=== PATIENT | male | born 1970 | race American Indian/Alaskan Native ===

== ENCOUNTER 2017-09-01 20:36 | Emergency (ER) | payer OTHER ==
[2017-09-01] MEDS ORDERED: ARTIFICIAL TEARS OPHTH OINT OU PRN (20:56)
[2017-09-01] MEDS ORDERED: VASELINE LIP THERAPY TP PRN (20:56)
[2017-09-01 20:57] LABS: Hematocrit 39.1 % (35.5-45.6); Hemoglobin 13.3 gm/dl (11.8-15.2); Mean Corpuscular HGB Conc 34 % (32-34); Mean Corpuscular Hemoglobin 31 pg (28-32); Mean Corpuscular Volume 91 fl (84-94); Platelet Count 133 K/mm3 (140-440); Red Blood Count 4.31 M/mm3 (3.65-5.03); Red Cell Distribution Width 13.4 % (13.2-15.2)
--- NOTE | 2017-09-01 20:57 | Cat Scan Report ---
FINAL REPORT PROCEDURE: CT HEAD/BRAIN WO CON TECHNIQUE: Computerized tomography of the head was performed without contrast material. HISTORY: neuro deficits < 6hrs or sx present upon awakening COMPARISON: No prior studies are available for comparison. FINDINGS: There is acute parenchymal hemorrhage centered in the left basal ganglia, measuring up to 5 centimeters transverse x 2.9 centimeters AP x 4.6 centimeters craniocaudal. There is also intraventricular hemorrhage in the left lateral ventricle and 3rd ventricle. There is 5 millimeters left to right midline shift. There may also be downward shift, with effacement of the basal cisterns. No prior is available to evaluate patient's baseline appearance. No acute fracture is seen. The visualized paranasal sinuses and mastoids are aerated. IMPRESSION: Large area of acute parenchymal hemorrhage centered in the left basal ganglia, with intraventricular extension into the left lateral ventricle and 3rd ventricle. Findings were discussed by telephone with Dr. Schneider at 7:40 p.m. central standard time on 09/01/2017
[2017-09-01] MEDS ORDERED: VERSED IV NR ×2 (21:00→22:00)
[2017-09-01] MEDS ORDERED: DIPRIVAN 10 MG/ML 1,000 MG/100 ML BOTTLE IV SCH (21:00)
[2017-09-01] MEDS ORDERED: DIPRIVAN 10 MG/ML 1,000 MG/100 ML BOTTLE IV ONE (21:02)
[2017-09-01 21:03] LABS: INR 0.91 (0.87-1.13)
[2017-09-01 21:04] LABS: Partial Thromboplastin Time 24.1 Sec. (24.2-36.6)
[2017-09-01] MEDS ORDERED: KEPPRA 1,000 MG in NACL 0.9% 100 ML IV ONE (21:11)
[2017-09-01] MEDS ORDERED: KEPPRA 1,000 MG/NS 0.75% 100ML 1,000 MG/100 ML BAG IV ONE (21:15)
[2017-09-01 21:22] LABS: BUN/Creatinine Ratio 14; Blood Urea Nitrogen 19 mg/dL (9-20); Calcium 9.4 mg/dL (8.4-10.2); Hemolysis Index 5
[2017-09-01] MEDS ORDERED: CARDENE 50 MG in NACL 0.9% 250ML 230 ML IV SCH (21:24)
[2017-09-01] MEDS ORDERED: APRESOLINE IV ONE (21:31)
[2017-09-01 21:35] LABS: Basophils % (Manual) 0 % (0.0-1.8); Total Cells Counted 100
--- NOTE | 2017-09-01 21:35 | XRay Report ---
FINAL REPORT PROCEDURE: XR CHEST 1V AP TECHNIQUE: Chest radiograph anteroposterior view. CPT 38592 HISTORY: ETT placement COMPARISON: No prior studies are available for comparison. FINDINGS: Heart: Prominent cardiac silhouette Mediastinum/Vessels: Prominent central vessels. Lungs/Pleural space: Normal. Endotracheal tube tip projects 2.6 centimeters superior to the antony Bony thorax: No acute osseous abnormality. Life support devices: None. IMPRESSION: Prominent central vessels. Endotracheal tube tip projects 2.6 centimeters superior to the antony.
[2017-09-01 21:36] LABS: Anisocytosis 1+; Large Platelets 1+; Platelet Estimate Consistent w Auto
--- NOTE | 2017-09-01 21:44 | Emergency Department Report ---
ED Neuro Deficit HPI - General Chief Complaint: Neuro Symptoms/Deficit Stated Complaint: POSSIBLE CVA Time Seen by Provider: 09/01/17 20:41 Source: family, EMS Mode of arrival: Stretcher Limitations: Altered Mental Status, Physical Limitation - History of Present Illness Initial Comments: Patient was unable to given hx Hx obtained from EMS, daughter, and mother- in-law Mr. Ng is a 47 yo male with possible hx of HTN. confirmed that he does not seek medical care. Consequently, he does not take any medications. He came home from work according to daughter and [id number]. He went to his bed to rest. He called out to his [id number]. She recognized right sided weakness. He had mild confusion. EMS arrived BP 296/161. EMS noticed unequal pupils. +vomiting. Lethargy ensued. Patient only able to mumble sounds. -: Sudden (1944) Location: speech, right face, dysarthria, right arm, left leg Presenting Symptoms: Present: Weak/Paralyzed One Side, Facial Droop/Numbness, Unable to Speak Clearly History of same: No Place: home Severity: severe Improves With: none Worsens With: none On Anticoagulants: No Context: sudden onset - Related Data Allergies/Adverse Reactions: Allergies Allergy/AdvReac Type Severity Reaction Status Date / Time Unable to Assess Allergy Verified 09/01/17 21:02 ED Review of Systems ROS: Stated complaint: POSSIBLE CVA Other details as noted in HPI Comment: All other systems reviewed and negative Constitutional: denies: fever, malaise Respiratory: denies: cough Cardiovascular: denies: chest pain ED Past Medical Hx - Past Medical History Hx Hypertension: Yes - Surgical History Past Surgical History?: No - Family History Family history: hypertension - Social History Smoking Status: Unknown if ever smoked Substance Use Type: Alcohol Other Social History: , works as a caterer ED Neuro Physical Exam - General Limitations: Altered Mental Status, Physical Limitation General appearance: lethargic, other (moving left side, neglect of right side, emesis on shift) Suspected Stroke: Yes - Head Head exam: Present: atraumatic, normocephalic - Eye Pupils: Present: unequal, other (5 mm pupil on right 3 mm pupil on left sluggish reaction) - Neck Neck exam: Present: normal inspection. Absent: tenderness, meningismus - Respiratory Respiratory exam: Present: normal lung sounds bilaterally. Absent: respiratory distress, wheezes, rales, rhonchi - Cardiovascular Cardiovascular Exam: Present: regular rate, normal rhythm, normal heart sounds. Absent: bradycardia, tachycardia, systolic murmur, diastolic murmur - GI/Abdominal GI/Abdominal exam: Present: soft. Absent: distended, tenderness, guarding, rebound - Extremities Exam Extremities exam: Present: normal inspection - Neurological Exam Neurological exam: Present: altered - NIHSS Assessment Interval: Baseline 1a. Level of Consciousness: not alert, arousable 1b. LOC Questions: answers no questions correctly 1c. LOC Commands: performs no tasks correctly 2. Best Gaze: partial gaze palsy 3. Visual: bilateral hemianopia 4. Facial Palsy: complete paralysis 5b. Motor Arm Right: no movement 5a. Motor Arm Left: no drift 6a. Motor Leg Left: no drift 6b. Motor Leg Right: no movement 7. Limb Ataxia: present 1 limb 8. Sensory: severe/total sensory loss 9. Best Language: severe aphasia 10. Dysarthria: severe dysarthria 11. Extinction/Inattention: profound inattention Total Score: 29 Stroke Severity: Severe Stroke - Psychiatric Psychiatric exam: Present: other (lethargic ) - Skin Skin exam: Present: other (clammy to touch) ED Course Vital Signs 09/01/17 21:06 Pulse Rate 97 H Respiratory 14 Rate Blood Pressure 242/162 O2 Sat by Pulse 96 Oximetry - Intubation Time Out Performed: Yes Sedative: Etomidate Mg Given: 20 Paralytic: Succinylcholine Mg Given: 150 Laryngoscope: [place] Size: 4 ET Tube Size: 8 Tube Secured Depth (cm): 25 Tube Secured Location: lips Tube Placement Confirmation: visualized tube passing t, equal breath sounds bilat, no breath sounds over epi, confirmation by capnometr Patient Tolerated Procedure: well Intubation Complications: none - Lab Data Result diagrams: 09/01/17 20:42 09/01/17 20:42 Lab Results 09/01/17 09/01/17 09/01/17 Range/Units 20:42 20:42 20:42 WBC 3.9 L (4.5-11.0) K/mm3 RBC 4.31 (3.65-5.03) M/mm3 Hgb 13.3 (11.8-15.2) gm/dl Hct 39.1 (35.5-45.6) % MCV 91 (84-94) fl MCH 31 (28-32) pg MCHC 34 (32-34) % RDW 13.4 (13.2-15.2) % Plt Count 133 L (140-440) K/mm3 [place] % (Auto) Sprue Knocker Add Manual Diff Complete Total Counted 100 Seg Neuts % (Manual) 48.0 (40.0-70.0) % Band Neutrophils % 0 % Lymphocytes % (Manual) 27.0 (13.4-35.0) % Reactive Lymphs % (Man) 0 % Monocytes % (Manual) 22.0 H (0.0-7.3) % Eosinophils % (Manual) 3.0 (0.0-4.3) % Basophils % (Manual) 0 (0.0-1.8) % Metamyelocytes % 0 % Myelocytes % 0 % Promyelocytes % 0 % Blast Cells % 0 % Nucleated RBC % Not Reportable Seg Neutrophils # Man 1.9 (1.8-7.7) K/mm3 Band Neutrophils # 0.0 K/mm3 Lymphocytes # (Manual) 1.1 L (1.2-5.4) K/mm3 Abs React Lymphs (Man) 0.0 K/mm3 Monocytes # (Manual) 0.9 H (0.0-0.8) K/mm3 Eosinophils # (Manual) 0.1 (0.0-0.4) K/mm3 Basophils # (Manual) 0.0 (0.0-0.1) K/mm3 Metamyelocytes # 0.0 K/mm3 Myelocytes # 0.0 K/mm3 Promyelocytes # 0.0 K/mm3 Blast Cells # 0.0 K/mm3 WBC Morphology Not Reportable Hypersegmented Neuts Not Reportable Hyposegmented Neuts Not Reportable Hypogranular Neuts Not Reportable Smudge Cells Not Reportable Toxic Granulation Not Reportable Toxic Vacuolation Not Reportable Dohle Bodies Not Reportable Pelger-Huet Anomaly Not Reportable Rhiannon Rods Not Reportable Platelet Estimate Consistent w auto Clumped Platelets Not Reportable Plt Clumps, EDTA Not Reportable Large Platelets 1+ Giant Platelets Not Reportable Platelet Satelliting Not Reportable Plt Morphology Comment Not Reportable RBC Morphology Not Reportable Dimorphic RBCs Not Reportable Polychromasia Not Reportable Hypochromasia Not Reportable Poikilocytosis Not Reportable Anisocytosis 1+ Microcytosis Not Reportable Macrocytosis Not Reportable Spherocytes Not Reportable Pappenheimer Bodies Not Reportable Sickle Cells Not Reportable Target Cells Not Reportable Tear Drop Cells Not Reportable Ovalocytes Not Reportable Helmet Cells Not Reportable Hough-[place]limpo Bodies Not Reportable Bitely Rings Not Reportable Priya Cells Not Reportable Bite Cells Not Reportable Crenated Cell Not Reportable Elliptocytes Not Reportable Acanthocytes (Spur) Not Reportable Rouleaux Not Reportable Hemoglobin C Crystals Not Reportable Schistocytes Not Reportable Malaria parasites Not Reportable [place] Bodies Not Reportable Hem Pathologist Commnt No PT 12.7 (12.2-14.9) Sec. INR 0.91 (0.87-1.13) APTT 24.1 L (24.2-36.6) Sec. Thrombin Time (15.1-19.6) Sec. Sodium 140 (137-145) mmol/L Potassium 2.8 L* (3.6-5.0) mmol/L Chloride 99.0 (98-107) mmol/L Carbon Dioxide 23 (22-30) mmol/L Anion Gap 21 mmol/L BUN 19 (9-20) mg/dL Creatinine 1.4 (0.8-1.5) mg/dL Estimated GFR > 60 ml/min BUN/Creatinine Ratio 14 % Glucose 115 H (75-100) mg/dL POC Glucose (70-105) Calcium 9.4 (8.4-10.2) mg/dL Troponin T 0.034 H (0.00-0.029) ng/mL 09/01/17 09/01/17 Range/Units 20:42 21:05 WBC (4.5-11.0) K/mm3 RBC (3.65-5.03) M/mm3 Hgb (11.8-15.2) gm/dl Hct (35.5-45.6) % MCV (84-94) fl MCH (28-32) pg MCHC (32-34) % RDW (13.2-15.2) % Plt Count (140-440) K/mm3 [place] % (Auto) Add Manual Diff Total Counted Seg Neuts % (Manual) (40.0-70.0) % Band Neutrophils % % Lymphocytes % (Manual) (13.4-35.0) % Reactive Lymphs % (Man) % Monocytes % (Manual) (0.0-7.3) % Eosinophils % (Manual) (0.0-4.3) % Basophils % (Manual) (0.0-1.8) % Metamyelocytes % % Myelocytes % % Promyelocytes % % Blast Cells % % Nucleated RBC % Seg Neutrophils # Man (1.8-7.7) K/mm3 Band Neutrophils # K/mm3 Lymphocytes # (Manual) (1.2-5.4) K/mm3 Abs React Lymphs (Man) K/mm3 Monocytes # (Manual) (0.0-0.8) K/mm3 Eosinophils # (Manual) (0.0-0.4) K/mm3 Basophils # (Manual) (0.0-0.1) K/mm3 Metamyelocytes # K/mm3 Myelocytes # K/mm3 Promyelocytes # K/mm3 Blast Cells # K/mm3 WBC Morphology Hypersegmented Neuts Hyposegmented Neuts Hypogranular Neuts Smudge Cells Toxic Granulation Toxic Vacuolation Dohle Bodies Pelger-Huet Anomaly Rhiannon Rods Platelet Estimate Clumped Platelets Plt Clumps, EDTA Large Platelets Giant Platelets Platelet Satelliting Plt Morphology Comment RBC Morphology Dimorphic RBCs Polychromasia Hypochromasia Poikilocytosis Anisocytosis Microcytosis Macrocytosis Spherocytes Pappenheimer Bodies Sickle Cells Target Cells Tear Drop Cells Ovalocytes Helmet Cells Hough-[place]lim[place] Bodies Bitely Rings [place] Cells Bite Cells Crenated Cell Elliptocytes Acanthocytes (Spur) Rouleaux Hemoglobin C Crystals Schistocytes Malaria parasites [place]on Bodies Hem Pathologist Commnt PT (12.2-14.9) Sec. INR (0.87-1.13) APTT (24.2-36.6) Sec. Thrombin Time 13.0 L (15.1-19.6) Sec. Sodium (137-145) mmol/L Potassium (3.6-5.0) mmol/L Chloride (98-107) mmol/L Carbon Dioxide (22-30) mmol/L Anion Gap mmol/L BUN (9-20) mg/dL Creatinine (0.8-1.5) mg/dL Estimated GFR ml/min BUN/Creatinine Ratio % Glucose (75-100) mg/dL POC Glucose 113 H (70-105) Calcium (8.4-10.2) mg/dL Troponin T (0.00-0.029) ng/mL - EKG Data -: EKG Interpreted by Me Interpretation: nonspecific ST-T wave yen, LVH 09/01/17 21:46 no previous EKG available Sinus tachycardia 110 nl axis No significant ST elevation + LVH with repolarization abnormality no overt signs of ischemia - Medical Decision Making Mr. Ng presents in critical condition with unequal pupils, lethargy, vomiting. Emergent intubation was required for airway protection. Intraparenchymal hemorrhage arising from the left basal ganglia with midline shift seen on CT. I spoke with my colleague who obtained the report from radiologist. I reviewed the images. I reviewed the transcribed report from radiology. I immedately consulted Dr. Barkley neuro strike out machine operator who accepted the patient [facility] Neuro[facility] I spoke extensively with , daughter, [id number]. I informed them of the expected outcomes and anticipated treatment plans. I reviewed labs. Normal INR. Platelets 03/25/1999. Mild hypokalemia 2.8. Patient is receiving nicardipine infusion with goals systolic [address] Barkley's recommendation. Dr. Barkley also recommended IV hydralazine which was also provided. He also received 1 g of Keppra. Sedation with propofol. ETT in appropriate position according to CXR. Patient will be transported in critical condition to [facility] Neuro ICU TPA nor ASA were indicated due to hemorrhagic CVA. Patient is a fully functional 47-year-old. He has been fully independent and healthy prior to today's acute illness. Critical Care Time: Yes Critical care time in (mins) excluding proc time.: 65 Critical care attestation.: If time is entered above; I have spent that time in minutes in the direct care of this critically ill patient, excluding procedure time. ED Disposition Clinical Impression: Hemorrhagic cerebrovascular accident (CVA), Acute encephalopathy Disposition: DC/TX-70 ANOTHER TYPE HLTHCARE Is pt being admited?: No Does the pt Need Aspirin: No Condition: Stable Time of Disposition: 21:30
[2017-09-01 21:52] LABS: Chol/HDL Ratio 3.89 %; HDL Cholesterol 59 mg/dL (40-59); LDL Cholesterol,Direct 160 mg/dL (50-130)
[2017-09-01 22:01] VITALS: BP 176/99
[2017-09-01] MEDS ORDERED: KCL 10MEQ/100ML 10 MEQ/100 ML BAG IV ONE (22:12)
[2017-09-01] MEDS ORDERED: NACL 0.9% 500 ML 500 ML ONE (22:30)
[2017-09-01] MEDS ORDERED: VERSED IV ONE (23:00)
[2017-09-01] MEDS ORDERED: QUELICIN ONE (23:00)
[2017-09-01] MEDS ORDERED: AMIDATE IV ONE (23:00)
== END 2017-09-01 22:32 | disposition other institution (70) ==
LOC: ED 20:36
DX: I63.9 Cerebral infarction, unspecified (principal); G93.40 Encephalopathy, unspecified; I10 Essential (primary) hypertension
CPT/HCPCS: 36415; 70450; 71045; 80048; 80061; 82803; 82962; 84484; 85007; 85025; 85610; 85670; 85730; 87070; 87205; 93005; 93010; 94002; 96365; 96375; 99291; J0330; J1953; J2250; J2704; J3480; J7040; J7050